=== PATIENT | female | born 1960 | race Hispanic/Latino ===

== ENCOUNTER 2016-10-26 08:14 | Day surgery (SDC) | payer OTHER ==
[2016-10-26 08:52] VITALS: BMI 31.7
[2016-10-26] MEDS ORDERED: Simethicone 40 mg/0.6 ml Liquid (30 ml) ONE (10:10)
[2016-10-26] MEDS ORDERED: Propofol 10 mg/ml Inj (20 ML) ONE (10:28)
[2016-10-26 11:29] VITALS: PULSE 53; RESP 21; TEMP 97.4; O2SAT 100
[2016-10-26 13:55] VITALS: BP 112/51
== END 2016-10-26 11:38 | disposition home or self-care (01) ==
LOC: C.ENDO 08:14
PROVIDERS: ATTEND Internal Medicine Gastroenterology
DX: K64.8 Other hemorrhoids (principal); K64.4 Residual hemorrhoidal skin tags
CPT/HCPCS: 45378; J2704; J3010